=== PATIENT | female | born 1955 ===

== ENCOUNTER → 2021-10-30 13:48 | Outpatient (CLI) | payer MEDICARE, OTHER, SELFPAY ==
[2021-10-30 14:08] LABS: COVID19 -Nasal RAPID Negative (Negative)
== END ==
PROVIDERS: Referring Provider Nurse Practitioner Family; Visit Provider Nurse Practitioner Family
DX: Z20.822 Contact with and (suspected) exposure to COVID-19 (principal)
CPT/HCPCS: 87635

== ENCOUNTER 2024-10-01 07:28 | Day surgery (SDC) | payer MEDICARE, OTHER, SELFPAY ==
[2024-09-29 09:29] VITALS: BMI 33.6
[2024-10-01] VITALS (8 sets, daily range): BP systolic 115–163; BP diastolic 66–81; PULSE 70–92; RESP 12–18; TEMP 36.3–36.9; O2SAT 94–99; BMI 33.2
--- NOTE | 2024-10-01 | PATH_ITS ---
[facility] Accession Number: [id number] No. of containers..01 Tissue . 01 Material submitted: . endometrium - ENDOMETRIAL CURETTINGS . 01 Diagnosis: ENDOMETRIAL CURETTINGS: Endometrial adenocarcinoma, endometrioid type, favor FIGO 2. RICARDO 10/08/2024 1611 Local . 01 Comment: This case was also reviewed by Dr. Ira Crespo, who agrees with the interpretation. . Dr. Sara Newberry discussed results with Neli Cherry L/Kiran Charge Nurse for Dr. Sharp's care team, on 10/08/2024 at approximately 4:02 p.m. . 01 Electronically signed: . Sara Newberry MD, Pathologist NPI- [id number] . 01 Gross description: . Received in formalin with two patient identifiers and endometrial curettings, are multiple holland soft tissue fragments admixed with hemorrhagic material aggregating to 2.7 x 1.8 x 0.5 cm. Filtered and submitted in cassette A1. ([id number]) /RICARDO 10/05/2024 1144 Local . 01 Microscopic: . An immunohistochemical stain for p16 is performed to evaluate for block reactivity. The control stained with appropriate reactivity. . RESULTS: Block A1 P16: Patchy staining present. PAX8: Positive. ER: Positive. NJ: Positive. P53: Wild-type staining pattern. Napsin A: Negative. WT1: Lesional cells negative. . The neoplastic cells are positive for PAX8, ER, and NJ, with patchy p16 positivity and a wild-type p53 staining pattern. The neoplastic cells are negative for napsin A and WT1. These findings support an endometrial origin and mitigate against an origin from endocervix or ovary. No definite features of clear cell or serous carcinoma are identified. . . * This test was developed and the performance characteristics were validated by [facility]. It has not been cleared or approved by the U.[place]. Food and Drug Administration. . 01 Pathologist provided ICD-10: C54.1, N95.0 . 01 CPT . 117948, B79201, [id number] Specimen Comment: A courtesy copy of this report has been sent to [phone] Performed at: [address] [id number] MD Souleymane Garcia MD Phone: [phone]
--- NOTE | 2024-10-01 07:48 | P.HPOB_ITS ---
History of Present Illness History of Present Illness Reason for admission: vaginal bleeding Narrative: Ricarda Curran is a 69 year old female G0 with postmenopausal bleeding, endometrial hyperplasia and cervical stenosis. Unable to perform endometrial biopsy in the office. She presents for a D&C hysteroscopy with possible removal of the polyp. [facility] Medical History Mumps Measles Chicken pox Fibroids Hypertension Prediabetes Surgical History Anesthesia History of cardiac radiofrequency ablation (~10/16/21) Family History (Updated 08/03/24 @ 20:26 by Ami Dale) Father Hypertension Mother Diabetes mellitus History of heart disease Hyperlipidemia Hypertension Stroke Sister Colon cancer Social History Smoking Status: Former smoker Meds Home Medications and Allergies Home Medications Medication Instructions Recorded Confirmed Type amlodipine 5 mg tablet 5 mg PO DAILY 07/02/24 10/01/24 History aspirin 81 mg tablet,delayed 81 mg PO DAILY 07/02/24 10/01/24 History release (Adult Aspirin Regimen) atorvastatin 10 mg tablet 10 mg PO DAILY 07/02/24 10/01/24 History gabapentin 100 mg capsule 100 mg PO 3XD 07/02/24 10/01/24 History lisinopril 20 mg tablet 20 mg PO DAILY 07/02/24 10/01/24 History metformin 500 mg tablet 500 mg PO BID 07/02/24 10/01/24 History Allergies Allergy/AdvReac Type Severity Reaction Status Date / Time No Known Drug Allergies Allergy Unverified 07/02/24 14:07 Exam Narrative Exam Narrative: Generally: No acute distress Lungs: Clear to auscultation bilaterally Cardiovascular: Regular rate and rhythm Abdomen: No scars. No masses palpable. 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 Unable to obtain endometrial biopsy in the office Plan: D&C hysteroscopy with possible polypectomy The risks, benefits, and alternatives to the procedure were explained to the patient. The risks including bleeding, infection, and uterine perforation. She understands risks and agrees proceed. A full par Q was held and consent form was signed. Time-Based Coding :: [TOTAL MINUTES] spent with patient and on the chart (including review of chart, obtaining history, exam, reviewing outside data, placing orders, documenting exam and treatment plan, and counseling patient) on [DATE].
[2024-10-01] MEDS: LACTATED RINGERS 1,000 ML 42 ML IV (08:02)
--- NOTE | 2024-10-01 08:18 | SUR.PREOP ---
Pt reports heart ablation procedure in [address] Monsalve.
--- NOTE | 2024-10-01 08:45 | PM.PREOP ---
Pre-operative Note Interval Note History & Physical reviewed/Exam performed by Physician: Yes Changes to H&P: No H&P completed within 30 days and has changed as indicated here:: 10/01/24
--- NOTE | 2024-10-01 09:06 | SUR.OPER ---
Lithotomy on padded OR bed, head on pillow, arms secured on padded arm boards at <90 degrees abduction. Legs secured in padded yellow fins stirrups.
--- NOTE | 2024-10-01 09:56 | SUR.OPER ---
Lithotomy on padded OR bed, head on pillow, arms secured on padded arm boards at <90 degrees abduction. Legs secured in padded yellow fins stirrups.
--- NOTE | 2024-10-01 10:10 | PM.GYNOP.1 ---
Operative Date/Time/Diagnoses Date of procedure: 10/01/24 Time of procedure: 10:10 Procedure & Clinicians Procedure: Procedures Operation Date: 10/01/24 09:00 Actual Procedure Side Surgeon p Incision of cervix, D&C hysteroscopy w/myosure Bekah Sharp MD Indications: Postmenopausal bleeding Endometrial hyperplasia Cervical stenosis Surgeon: Bekah Sharp Anesthesia Type: General ( LMA) Operative Notes Findings: 8 week size anteverted uterus Cervical stenosis Grape like clusters hanging from the endometrial lining Closure Type: not applicable Specimen(s): endometrial curettings Estimated blood loss (mL): 5 Blood products transfused: none Procedure in detail: After informed consent was obtained, the patient was taken to the operating room where she was placed in the dorsal supine position. After adequate LMA general anesthesia was achieved, she was placed in the dorsal lithotomy position, and prepped and draped in the usual sterile Fashions. A time-out was performed. A Sofia speculum was placed into the vagina. The anterior lip of the cervix was grasped with a single-tooth tenaculum. An attempt was made to dilate the cervical os with a lacrimal probe dilators, but was unsuccessful. Using an 11 blade, an incision was made in the dimple of the cervical os. Upon opening there was a small amount of old blood. This was then further dilated with the lacrimal code dilators until the 3.5 mm hysteroscope could pass into the cervix and then guided up towards the patient's right into the endometrial cavity. Endometrial cavity was confirmed by seeing both fallopian tube ostia. At the top of the cervix there appeared to possibly be a uterine septum but when the scope was directed towards the patient's left side it appeared that it was just a false track. In the endometrial cavity there were grape like clusters of what appeared to be endometrium hanging from the right midbody of the uterus. The 3.5 mm scope was removed and the cervix was further dilated to 7 mm Hegar dilator. The 5.5 mm MyoSure scope then passed easily into the endometrial cavity. Using the MyoSure Lite, directed biopsies were taken at the grape-like clusters that were hanging from the endometrium. Several other areas of the uterus were sampled as well. The instruments were removed from the uterus. Single-tooth tenaculum was removed from the anterior lip of the cervix. The bivalve speculum was removed from the vagina. Sponge, lap, and instrument counts were correct x2. Patient tolerated the procedure well, and was taken to PACU in stable condition. Fluid deficit: 120 cc Total Fluid: 1100 cc Final pressure: 80 mmHg Cutting time: 30 seconds Complications: none Post-operative Condition: stable Disposition: PACU Plan for aftercare: Home after recovery
== END 2024-10-01 10:52 | disposition home or self-care (01) ==
PROVIDERS: PCP Physician Assistant; Referring Provider Obstetrics & Gynecology; Visit Provider Obstetrics & Gynecology
PROC: 0UDB8ZZ Extraction of Endometrium, Via Natural or Artificial Opening Endoscopic (ICD-10-PCS; CPT 58558; principal; 2024-10-01 09:00)
DX: C54.1 Malignant neoplasm of endometrium (principal); N88.2 Stricture and stenosis of cervix uteri
CPT/HCPCS: 58558; J1100; J1885; J2250; J2405; J2704; J3010